=== PATIENT | male | born 1985 | race Caucasian/White ===

== ENCOUNTER 2021-06-13 12:23 | Emergency (ER) | payer OTHER ==
[2021-06-13 14:04] LABS: HEMOGLOBIN 14.3 gm/dl (14.0-17.5); RED BLOOD COUNT 4.65 M/UL (4.20-5.50); WHITE BLOOD COUNT 7.2 K/UL (4.5-11.0)
[2021-06-13] MEDS ORDERED: KEPPRA500 MG PO (14:08)
[2021-06-13 14:37] LABS: BUN/CREATININE RATIO 9 (0-10)
== END 2021-06-13 14:46 | disposition home or self-care (01) ==
LOC: ER1 12:23
PROVIDERS: Physician Assistant
DX: G40.909 Epilepsy, unspecified, not intractable, without status epilepticus (principal); Z91.041 Radiographic dye allergy status; Z79.899 Other long term (current) drug therapy
CPT/HCPCS: 80053; 81001; 82550; 82553; 83874; 84484; 85025; 93005; 96374; 99284; J1953